=== PATIENT | female | born 1980 | race Caucasian/White ===

== ENCOUNTER 2017-12-16 17:57 | Emergency (ER) | payer BC ==
[2017-12-16 18:02] VITALS: RESP 18
[2017-12-16] MEDS ORDERED: KETOROLAC 30 MG/ML 1 ML VIAL IM STA (18:23)
--- NOTE | 2017-12-16 18:27 | ED ---
General Adult HPI - General Chief complaint: Abdominal Pain Stated complaint: Abd Pain Time Seen by Provider: 12/16/17 18:07 Source: patient, RN notes reviewed Mode of arrival: ambulatory Limitations: no limitations - History of Present Illness Initial comments: This is a 37-year-old female who presents to the emergency department with chief complaint of abdominal flank pain. Patient states that she was seen at [facility] on Saturday and diagnosed with kidney stones. She was told that she was actively passing one stone and that she had 2 other stones in the left kidney. Patient states that she has had intermittent pain since that time. She has been taking ibuprofen and Flomax. She states that today while at work the pain increased and she felt really warm and sweaty. She states that currently she is experiencing left lower abdominal cramping and left flank pain. She states that when she was initially diagnosed a kidney stone she was having hematuria but this has subsided. She denies any fevers or chills. Denies shortness of breath or chest pain. Patient presents asking for a work note to be excused for the rest of the week. - Related Data Home Medications Medication Instructions Recorded Confirmed Ibuprofen [Motrin] 800 mg PO Q8HR PRN 12/16/17 12/16/17 Tamsulosin [Flomax] 0.4 mg PO DAILY 12/16/17 12/16/17 Allergies Allergy/AdvReac Type Severity Reaction Status Date / Time Penicillins Allergy Swelling Verified 12/16/17 18:26 Review of Systems ROS Statement: Those systems with pertinent positive or pertinent negative responses have been documented in the HPI. ROS Other: All systems not noted in ROS Statement are negative. Past Medical History Past Medical History: No Reported History History of Any Multi-Drug Resistant Organisms: None Reported Past Surgical History: Tonsillectomy, Tubal Ligation Past Psychological History: No Psychological Hx Reported Smoking Status: Current every day smoker Past Alcohol Use History: None Reported, Rare Past Drug Use History: None Reported General Exam - General Exam Comments Initial Comments: General: Awake and alert, well-developed; in no apparent distress. Appears comfortable. HEENT: Head atraumatic, normocephalic. Pupils are equal, round and reactive to light. Extraocular movements intact. Oropharynx moist without erythema or exudate. Neck: Supple. Normal ROM. Cardiovascular: Regular rate and rhythm. No murmurs, rubs or gallops. Chest symmetrical. Respiratory: Lungs clear to auscultation bilaterally. No wheezes, rales or rhonchi. Normal respiratory effort with no use of accessory muscles. Abdomen: Soft, non-tender, non-distended. No rigidity, rebound or guarding. Normal bowel sounds in all 4 quadrants. No CVA tenderness bilaterally. Musculoskeletal: Normal ROM, no tenderness bilateral upper and lower extremities. Ambulating normally. Skin: [place], warm and dry without rashes or lesions. Neurological: Alert and oriented x3. CN II-XII grossly intact. Speech is fluent and answers are appropriate. No focal neuro deficits. Psychiatric: Normal mood and affect. No overt signs of depression or anxiety noted. Limitations: no limitations (Initial vital signs: Temperature 98.0, pulse 126, respirations 18, blood pressure 162/90, 100% on room air.) Course Vital Signs 12/16/17 17:59 Temperature 98.0 F Pulse Rate 126 H Respiratory 18 Rate Blood Pressure 162/90 O2 Sat by Pulse 100 Oximetry Medical Decision Making - Medical Decision Making This is a 37-year-old female who presents to the emergency department with chief complaint of left flank and abdominal pain. Patient was diagnosed on Saturday. She had an episode at work today with increasing pain and feeling very warm. Vital signs are stable and patient is afebrile. Patient wishes to have a work note to be excused for the rest of the week. Patient is comfortable and not complaining of any significant pain. No nausea or vomiting. UA revealed small blood and red blood cells. No signs of infection. KUB revealed a patient over the kidneys. Patient likely passed a kidney stone earlier today. She is in no distress and vital signs are stable. She'll be discharged home at this time. All questions answered. - Lab Data Lab Results 12/16/17 Range/Units 18:34 Urine Color Yellow Urine Appearance Clear (Clear) Urine pH 6.0 (5.0-8.0) Ur Specific [place] 1.028 (1.001-1.035) Urine Protein 1+ H (Negative) Urine Glucose (UA) Negative (Negative) Urine Ketones Negative (Negative) Urine Blood Small H (Negative) Urine Nitrite Negative (Negative) Urine Bilirubin Negative (Negative) Urine Urobilinogen <2.0 (<2.0) mg/dL Ur Leukocyte Esterase Trace H (Negative) Urine RBC 10 H (0-5) /hpf Urine WBC 2 (0-5) /hpf Ur Squamous Epith Cells 4 (0-4) /hpf Hyaline Casts 13 H (0-2) /lpf Urine Mucus Occasional H (None) /hpf - Radiology Data Radiology results: report reviewed, image reviewed X-ray KUB findings: There is no sign of intestinal obstruction or pneumoperitoneum. Fecal pattern is normal. Lung bases are clear. There are no pathologic calcifications over the kidneys. Impression: Nonacute abdomen. Disposition Clinical Impression: Calculus of kidney Disposition: HOME SELF-CARE Condition: Good Instructions: Kidney Stones (ED), How to Strain Your Urine (ED), Ureteral Stones (ED) Additional Instructions: Please take medications as prescribed. Please follow up with primary care provider within 1-2 days. Return to emergency department if symptoms should worsen or any concerns arise. Is patient prescribed a controlled substance at d/c from ED?: No Referrals: None,Stated [Primary Care Provider] - 1-2 days Time of Disposition: 19:33
[2017-12-16 18:51] LABS: Appearance,Urine Clear (Clear); Bilirubin,Urine Negative (Negative); Blood,Urine Small (Negative); Color,Urine Yellow; Glucose,Urine (UA) Negative (Negative); Hyaline Casts,Urine 13 /lpf (0-2); Ketones,Urine Negative (Negative); Leukocyte Esterase,Urine Trace (Negative); Mucus,Urine Occasional /hpf; Nitrite,Urine Negative (Negative); Protein,Urine 1+ (Negative); RBC,Urine 10 /hpf (0-5); Specific Gravity,Urine 1.028 (1.001-1.035); Squamous Epithelial Cell,Urine 4 /hpf (0-4); Urobilinogen,Urine <2.0 mg/dL (<2.0); WBC,Urine 2 /hpf (0-5)
--- NOTE | 2017-12-16 19:09 | XR ---
EXAMINATION TYPE: XR KUB DATE OF EXAM: 12/16/2017 COMPARISON: NONE HISTORY: Abdominal pain TECHNIQUE: 2 views FINDINGS: There is no sign of intestinal obstruction or pneumoperitoneum. Fecal pattern is normal. Milla ng bases are clear. There are no pathologic calcifications over the kidneys. IMPRESSION: Nonacute abdomen.
[2017-12-16 19:42] VITALS: BP 129/79; PULSE 77; TEMP 97
== END 2017-12-16 19:42 | disposition home or self-care (01) ==
LOC: EC 17:57
DX: N20.0 Calculus of kidney (principal); F17.200 Nicotine dependence, unspecified, uncomplicated; Z79.899 Other long term (current) drug therapy; Z88.0 Allergy status to penicillin
CPT/HCPCS: 81001; 87086; 74018; 99284; 96372; J1885

== ENCOUNTER → 2018-01-01 | Outpatient (CLI) | payer BC ==
--- NOTE | 2018-01-01 13:57 | US ---
EXAMINATION TYPE: US kidneys/renal and bladder DATE OF EXAM: 01/01/2018 COMPARISON: Abdominal x-ray December 16, 2016 CLINICAL HISTORY: N23 Renal Colic. Back pain EXAM MEASUREMENTS: Right Kidney: 11.2 x 6.0 x 5.5 cm Left Kidney: 11.0 x 4.8 x 5.8 c Right Kidney: moderate hydronephrosis seen Left Kidney: multiple shadowing renal stones seen, largest stones were on inferior pole and = 0.9cm Bladder: wnl Bilateral Jets seen: yes The urinary bladder is anechoic. Bilateral ureteral jets are seen. There is fullness centrally in right kidney consistent with moderate hydronephrosis. No shadowing nep hrolithiasis. Technologist altman nonshadowing hyperechoic foci left kidney to reflect small renal lucius culi. No hydronephrosis is seen. IMPRESSION: There is suspected moderate right-sided hydronephrosis though the distal right ureter jet is seen katie ing complete obstruction unlikely. There are possible small renal calculi bilaterally better visualiz ed in the left kidney on ultrasound, no large calculi are clearly seen on recent plain film. Consider CT evaluation to further assess.
== END | disposition home or self-care (01) ==
LOC: RADUSWWP 12:48
PROVIDERS: ATTEND Family Medicine
DX: N23 Unspecified renal colic (principal)
CPT/HCPCS: 76770

== ENCOUNTER 2019-05-13 02:47 | Emergency (ER) | payer BC ==
[2019-05-13 02:59] VITALS: BP 166/93; PULSE 133; RESP 22; TEMP 97.6
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
== END 2019-05-13 04:52 | disposition home or self-care (01) ==
LOC: EC 02:47
DX: S00.83XA Contusion of other part of head, initial encounter (principal); R00.0 Tachycardia, unspecified; F17.200 Nicotine dependence, unspecified, uncomplicated; Z88.0 Allergy status to penicillin; Y04.0XXA Assault by unarmed brawl or fight, initial encounter; Y92.009 Unspecified place in unspecified non-institutional (private) residence as the place of occurrence of the external cause
CPT/HCPCS: 70486; 99284

== ENCOUNTER 2019-08-12 18:52 | Emergency (ER) | payer BC, OTHER ==
[2019-08-12 19:07] VITALS: BP 158/98; PULSE 103; RESP 22
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
== END 2019-08-12 20:14 | disposition left against medical advice (07) ==
LOC: EC 18:52
DX: F41.9 Anxiety disorder, unspecified (principal); R07.9 Chest pain, unspecified; R06.02 Shortness of breath; F17.200 Nicotine dependence, unspecified, uncomplicated; Z53.20 Procedure and treatment not carried out because of patient's decision for unspecified reasons; Z88.0 Allergy status to penicillin
CPT/HCPCS: 99283

== ENCOUNTER 2024-04-10 14:25 | Inpatient (IN) | payer MEDICAID, OTHER ==
--- NOTE | 2024-04-10 14:51 | ED ---
General Adult HPI - General Stated complaint: Mental Health Time Seen by Provider: 04/10/24 14:35 Source: patient, RN notes reviewed, old records reviewed - History of Present Illness Initial comments: 43-year-old female who is brought in by EMS. Patient states she has been dealing with people messing with her. Patient states anytime she was out in public people are messing with hearing and getting into her devices and sending her messages and she thinks at home her uncle is messing with her clothing and taking zippers out of her clothing as well he denies it. Patient states that she has just had it after 5 years she is just so stressed that she went to urgent care today to get some help so that she can get some medicine to calm her down so she does not get mad and do something to somebody else. Patient states that she is not suicidal but she does at times which she was not here she is sick of dealing with these people. Patient denies any physical complaints today - Related Data Home Medications Medication Instructions Recorded Confirmed No Known Home Medications 05/13/19 04/10/24 Allergies Allergy/AdvReac Type Severity Reaction Status Date / Time Penicillins Allergy Swelling Verified 04/10/24 15:48 face Review of Systems ROS Statement: Those systems with pertinent positive or pertinent negative responses have been documented in the HPI. ROS Other: All systems not noted in ROS Statement are negative. Past Medical History Past Medical History: No Reported History History of Any Multi-Drug Resistant Organisms: None Reported Past Surgical History: Tonsillectomy, Tubal Ligation Additional Past Surgical History / Comment(s): ganglion cyst removal, LEEP, right knee surgery, Past Psychological History: No Psychological Hx Reported Past Alcohol Use History: Rare Past Drug Use History: None Reported - Past Family History Father Family Medical History: Unable to Obtain Mother Family Medical History: Unable to Obtain General Exam - General Exam Comments Initial Comments: GENERAL: Patient is well-developed and well-nourished. Patient is nontoxic and well- hydrated and is in no acute distress. ENT: Neck is soft and supple. No significant lymphadenopathy is noted. Oropharynx is clear. Moist mucous membranes. Neck has full range of motion without eliciting any pain. EYES: The sclera were anicteric and conjunctiva were pink and moist. Extraocular movements were intact and pupils were equal round and reactive to light. Eyelids were unremarkable. PULMONARY: Unlabored respirations. Good breath sounds bilaterally. No audible rales rhonchi or wheezing was noted. CARDIOVASCULAR: There is a regular rate and rhythm without any murmurs gallops or rubs. ABDOMEN: Soft and nontender with normal bowel sounds. SKIN: Skin is clear with no lesions or rashes and otherwise unremarkable. NEUROLOGIC: Patient is alert and oriented x3. Cranial nerves II through XII are grossly intact. Motor and sensory are also intact. Normal speech, volume and content. Symmetrical smile. MUSCULOSKELETAL: Normal extremities with adequate strength and full range of motion. LYMPHATICS: No significant lymphadenopathy is noted PSYCHIATRIC: Thinks that people are messing with her constantly in the are getting into her phone and into her house Course Vital Signs 04/10/24 14:37 Temperature 98.3 F Pulse Rate 90 Respiratory 20 Rate Blood Pressure 166/114 O2 Sat by Pulse 99 Oximetry Medical Decision Making - Medical Decision Making Was pt. sent in by a medical professional or institution (, PA, VIDEOTAPE EDITOR, urgent care, hospital, or long-term...) When possible be specific @ -No Did you speak to anyone other than the patient for history (EMS, parent, family, police, friend...)? What history was obtained from this source @ -No Did you review nursing and triage notes (agree or disagree)? Why? @ -I reviewed and agree with nursing and triage notes Were old charts reviewed (outside hosp., previous admission, EMS record, old EKG, old radiological studies, urgent care reports/EKG's, long-term records)? Report findings @ -No old charts were reviewed Differential Diagnosis? @ -Differential Mental Health Depression, anxiety, bipolar, psychosis, schizophrenia, borderline personality, situational depression, adjustment disorder, behavioral disorder, brain tumor, malingering, substance abuse, encephalopathy, medication reaction, dementia, hypothyroidism, degenerative neurologic disorder, lupus.... This is not meant to be all-inclusive list EKG interpreted by me (3pts min.). @ -None X-rays interpreted by me (1pt min.). @ -None done CT interpreted by me (1pt min.). @ -None done U/S interpreted by me (1pt. min.). @ -None done What testing was considered but not performed or refused? (CT, X-rays, U/S, labs)? Why? @ -None What meds were considered but not given or refused? Why? @ -None Did you discuss the management of the patient with other professionals (adry up i.e. , PA, VIDEOTAPE EDITOR, lab, RT, psych nurse, social services technician, assistant corporate secretary, teacher, special technical operations officer, caseworker protective services)? Give summary @ -EPS evaluated the patient and determined the patient need to be admitted in consultation with the psychiatrist. Was smoking cessation discussed for >3mins.? @ -No Was critical care preformed (if so, how long)? @ -No Were there social determinants of health that impacted care today? How? (Homelessness, low income, unemployed, alcoholism, drug addiction, transportation, low edu. Level, literacy, decrease access to med. care, [facility], rehab)? @ -No Was there de-escalation of care discussed even if they declined (Discuss DNR or withdrawal of care, Hospice)? DNR status @ -No What co-morbidities impacted this encounter? (DM, HTN, Smoking, COPD, CAD, Cancer, CVA, ARF, Chemo, Hep., AIDS, mental health diagnosis, sleep apnea, morbid obesity)? @ -None Was patient admitted / discharged? Hospital course, mention meds given and route, prescriptions, significant lab abnormalities, going to OR and other pertinent info. @ -Patient had no physical complaints while she was here and she was amenable to admission Undiagnosed new problem with uncertain prognosis? @ -No Drug Therapy requiring intensive monitoring for toxicity (Heparin, Nitro, Insulin, Cardizem)? @ -No Were any procedures done? @ -No Diagnosis/symptom? @ -Acute psychosis Acute, or Chronic, or Acute on Chronic? @ -Acute Uncomplicated (without systemic symptoms) or Complicated (systemic symptoms)? @ -Complicated Side effects of treatment? @ -No Exacerbation, Progression, or Severe Exacerbation? @ -No Poses a threat to life or bodily function? How? (Chest pain, USA, SC, pneumonia, PE, COPD, DKA, ARF, appy, cholecystitis, CVA, Diverticulitis, Homicidal, Suicidal, threat to staff... and all critical care pts) @ -No - Lab Data Result diagrams: 04/11/24 07:10 04/11/24 07:10 Lab Results 04/10/24 04/10/24 04/10/24 Range/Units 15:22 15:22 21:37 Urine Color Yellow Urine Appearance Cloudy H (Clear) Urine pH 6.0 (5.0-8.0) Ur Specific [place] 1.026 (1.001-1.035) Urine Protein 1+ H (Negative) Urine Glucose (UA) Negative (Negative) Urine Ketones Negative (Negative) Urine Blood Trace H (Negative) Urine Nitrite Negative (Negative) Urine Bilirubin Negative (Negative) Urine Urobilinogen <2.0 (<2.0) mg/dL Ur Leukocyte Esterase Small H (Negative) Urine RBC 14 H (0-5) /hpf Urine WBC 8 H (0-5) /hpf Ur Squamous Epith Cells 8 H (0-4) /hpf Urine Bacteria Rare H (None) /hpf Hyaline Casts 8 H (0-2) /lpf Urine Mucus Moderate H (None) /hpf Urine Opiates Screen Not Detected (NotDetected) Ur Oxycodone Screen Not Detected (NotDetected) Urine Methadone Screen Not Detected (NotDetected) Ur Barbiturates Screen Not Detected (NotDetected) U Tricyclic Antidepress Not Detected (NotDetected) Ur Phencyclidine Scrn Not Detected (NotDetected) Ur Amphetamines Screen Not Detected (NotDetected) U Methamphetamines Scrn Not Detected (NotDetected) U Benzodiazepines Scrn Not Detected (NotDetected) Urine Cocaine Screen Not Detected (NotDetected) U Marijuana (THC) Screen Not Detected (NotDetected) SARS-CoV-2 (PCR) Not Detected (Not Detectd) Disposition Clinical Impression: Psychosis Disposition: ADMITTED IP TO THIS HOSP
[2024-04-10] MEDS: NICOTINE 21MG/24HR PATCH TRANSDERM STA (14:53)
[2024-04-10 15:58] LABS: Amphetamine Screen,Urine Not Detected (NotDetected); Barbiturate Screen,Urine Not Detected (NotDetected); Benzodiazepines Screen,Urine Not Detected (NotDetected); Cocaine Screen,Urine Not Detected (NotDetected); Methadone Screen, Urine Not Detected (NotDetected); Opiate Screen,Urine Not Detected (NotDetected); Oxycodone Screen, Urine Not Detected (NotDetected); Phencyclidine Screen,Urine Not Detected (NotDetected); Tricyclic Antidepressant,Urine Not Detected (NotDetected); Urn Cannabinoid Scrn Not Detected (NotDetected)
[2024-04-10] MEDS ORDERED: LORazepam 2 MG/ML INJ IM PRN (22:47)
[2024-04-10] MEDS ORDERED: IBUPROFEN 600 MG TAB PO PRN (22:47)
[2024-04-10] MEDS ORDERED: haloperidoL 5 MG TAB PO PRN (22:47)
[2024-04-10] MEDS ORDERED: MAGNESIUM HYDROXIDE 2,400 MG/30 ML CUP PO PRN (22:47)
[2024-04-10] MEDS ORDERED: HALOPERIDOL LACTATE 5 MG/ML 1 ML VIAL IM PRN (22:47)
--- NOTE | 2024-04-11 04:45 | P.MDCNMH ---
History of Present Illness H&P Date: 04/11/24 Chief Complaint: Medical evaluation 43-year-old female no significant past medical history Patient coming in for evaluation due to delusional ideation. Patient denies any fevers chills coughing nausea vomiting chest pain trouble breathing headache changes in vision or hearing falls, denies any nausea vomiting abdominal pain changes in bowel or urinary habits review of systems Pertinent positives as noted in HPI. All other systems were reviewed and are negative on exam Constitutional: No acute distress, conversant, pleasant Eyes: Anicteric sclerae, moist conjunctiva, Pupils equal round reactive to light ENMT: NC/AT Lungs: Clear to auscultation Clear to percussion Normal respiratory effort, no accessory muscle use Cardiovascular: Heart regular in rate and rhythm, No murmurs, gallops, or rubs No peripheral edema Abdominal: Soft Nontender, no guarding, rebound or rigidity Abdomen moving with respiration Normoactive bowel sounds Extremities: No digital cyanosis No clubbing Pedal pulses intact and symmetrical Radial pulses intact and symmetrical No calf tenderness Psychiatric: Alert and oriented to person, place and time Neuro Muscles Strength 5/5 in all 4 extremities Sensation to light touch grossly present throughout Cranial nerves II-XII grossly intact Past Medical History Past Medical History: No Reported History History of Any Multi-Drug Resistant Organisms: None Reported Past Surgical History: Tonsillectomy, Tubal Ligation Additional Past Surgical History / Comment(s): ganglion cyst removal, LEEP, right knee surgery, Past Anesthesia/Blood Transfusion Reactions: No Reported Reaction Past Psychological History: No Psychological Hx Reported Smoking Status: Current every day smoker Past Alcohol Use History: Rare Past Drug Use History: Methamphetamine - Past Family History Father Family Medical History: Unable to Obtain Mother Family Medical History: Unable to Obtain Medications and Allergies Home Medications Medication Instructions Recorded Confirmed Type No Known Home Medications 05/13/19 04/10/24 History Allergies Allergy/AdvReac Type Severity Reaction Status Date / Time Penicillins Allergy Swelling Verified 04/10/24 15:48 face Physical Exam Vitals: Vital Signs Temp Pulse Pulse Resp BP BP Pulse Ox 04/10/24 23:41 98.4 F 75 18 158/95 98 04/10/24 14:37 98.3 F 90 20 166/114 99 Intake and Output 04/10/24 04/10/24 04/11/24 14:59 22:59 06:59 Other: Weight 73.028 kg 70.789 kg Cranial Nerve Examination - Cranial Nerves Cranial Nerve II- Optic: Intact Cranial Nerve III- Oculomotor: Intact Cranial Nerve IV- Trochlear: Intact Cranial Nerve V- Trigeminal: Intact Cranial Nerve - Abducens: Intact Cranial Nerve VII- Facial: Intact Cranial Nerve VIII- Auditory: Intact Cranial Nerve IX- Glossopharyngeal: Intact Cranial Nerve X- Vagus: Intact Cranial Nerve XI- Accessory: Intact Cranial Nerve XII- Hypoglossal: Intact Assessment and Plan Assessment: Delusional ideation Management per psych Urine drug screen negative Tobacco smoking and dependence Nicotine replacement therapy offered No other labs available at this time Overall stable from medical standpoint Thank for this consultation
[2024-04-11 06:39] LABS: Appearance,Urine Cloudy (Clear); Bacteria,Urine Rare /hpf; Bilirubin,Urine Negative (Negative); Blood,Urine Trace (Negative); Color,Urine Yellow; Glucose,Urine (UA) Negative (Negative); Hyaline Casts,Urine 8 /lpf (0-2); Ketones,Urine Negative (Negative); Leukocyte Esterase,Urine Small (Negative); Mucus,Urine Moderate /hpf; Nitrite,Urine Negative (Negative); Protein,Urine 1+ (Negative); RBC,Urine 14 /hpf (0-5); Specific Gravity,Urine 1.026 (1.001-1.035); Squamous Epithelial Cell,Urine 8 /hpf (0-4); Urobilinogen,Urine <2.0 mg/dL (<2.0); WBC,Urine 8 /hpf (0-5)
[2024-04-11 07:48] LABS: Basophils # (A) 0.1 k/uL (0-0.2); Basophils % (A) 1 %; Eosinophils # (A) 0.2 k/uL (0-0.7); Eosinophils % (A) 2 %; HCT 48.8 % (34.0-46.0); HGB 16.3 gm/dL (11.4-16.0); Lymphocytes # (A) 1.9 k/uL (1.0-4.8); Lymphocytes % (A) 23 %; MCH 31.6 pg (25.0-35.0); MCHC 33.3 g/dL (31.0-37.0); MCV 94.9 fL (80.0-100.0); Mean Platelet Volume 8.1; Monocytes # (A) 0.6 k/uL (0-1.0); Monocytes % (A) 7 %; Neutrophils # (A) 5.4 k/uL (1.3-7.7); Neutrophils % (A) 65 %; Platelet Count 368 k/uL (150-450); RBC 5.15 m/uL (3.80-5.40); WBC 8.4 k/uL (3.8-10.6)
[2024-04-11 07:58] LABS: Potassium 4.2 mmol/L (3.5-5.1)
[2024-04-11 07:59] LABS: ALT 14 U/L (4-34); AST 29 U/L (14-36); African American GFR (CKD) >90 (>60 ml/min/1.73 sqM); Albumin 4.4 g/dL (3.5-5.0); Alkaline Phosphatase 90 U/L (38-126); Anion Gap 10 mmol/L; Bilirubin, Delta 0.3 mg/dL (0.0-0.2); Bilirubin,Unconjugated 0.6 mg/dL (0.0-1.1); Blood Urea Nitrogen 9 mg/dL (7-17); Calcium 9.8 mg/dL (8.4-10.2); Carbon Dioxide 22 mmol/L (22-30); Chloride 108 mmol/L (98-107); Glucose 93 mg/dL (74-99); Non-African American GFR(CKD) >90 (>60 ml/min/1.73 sqM); Sodium 140 mmol/L (137-145); Total Bilirubin 0.9 mg/dL (0.2-1.3); Total Protein 7.3 g/dL (6.3-8.2)
[2024-04-11] MEDS: NICOTINE 14MG/24HR PATCH TRANSDERM SCH (09:29)
--- NOTE | 2024-04-11 11:46 | P.HP ---
Psychiatric H&P - . H&P Date: 04/11/24 History & Physical: Allergies Allergy/AdvReac Type Severity Reaction Status Date / Time Penicillins Allergy Swelling Verified 04/10/24 15:48 face Vital Signs Temp 97.1 F L 04/11/24 05:24 Pulse 96 04/11/24 05:24 Resp 18 04/11/24 05:24 BP 134/95 04/11/24 05:24 Pulse Ox 96 04/11/24 05:24 FiO2 Intake & Output 04/10/24 04/11/24 04/11/24 18:59 06:59 18:59 Weight 73.028 kg 70.789 kg Laboratory Last Values WBC 8.4 k/uL (3.8-10.6) 04/11/24 07:10 RBC 5.15 m/uL (3.80-5.40) 04/11/24 07:10 Hgb 16.3 gm/dL (11.4-16.0) H 04/11/24 07:10 Hct 48.8 % (34.0-46.0) H 04/11/24 07:10 MCV 94.9 fL (80.0-100.0) 04/11/24 07:10 MCH 31.6 pg (25.0-35.0) 04/11/24 07:10 MCHC 33.3 g/dL (31.0-37.0) 04/11/24 07:10 RDW 13.0 % (11.5-15.5) 04/11/24 07:10 Plt Count 368 k/uL (150-450) 04/11/24 07:10 MPV 8.1 04/11/24 07:10 Neutrophils % 65 % 04/11/24 07:10 Lymphocytes % 23 % 04/11/24 07:10 Monocytes % 7 % 04/11/24 07:10 Eosinophils % 2 % 04/11/24 07:10 Basophils % 1 % 04/11/24 07:10 Neutrophils # 5.4 k/uL (1.3-7.7) 04/11/24 07:10 Lymphocytes # 1.9 k/uL (1.0-4.8) 04/11/24 07:10 Monocytes # 0.6 k/uL (0-1.0) 04/11/24 07:10 Eosinophils # 0.2 k/uL (0-0.7) 04/11/24 07:10 Basophils # 0.1 k/uL (0-0.2) 04/11/24 07:10 Sodium 140 mmol/L (137-145) 04/11/24 07:10 Potassium 4.2 mmol/L (3.5-5.1) 04/11/24 07:10 Chloride 108 mmol/L (98-107) H 04/11/24 07:10 Carbon Dioxide 22 mmol/L (22-30) 04/11/24 07:10 Anion Gap 10 mmol/L 04/11/24 07:10 BUN 9 mg/dL (7-17) 04/11/24 07:10 Creatinine 0.60 mg/dL (0.52-1.04) 04/11/24 07:10 Est GFR (CKD-EPI)AfAm >90 (>60 ml/min/1.73 sqM) 04/11/24 07:10 Est GFR (CKD-EPI)NonAf >90 (>60 ml/min/1.73 sqM) 04/11/24 07:10 Glucose 93 mg/dL (74-99) 04/11/24 07:10 Calcium 9.8 mg/dL (8.4-10.2) 04/11/24 07:10 Total Bilirubin 0.9 mg/dL (0.2-1.3) 04/11/24 07:10 Conjugated Bilirubin 0.0 mg/dL (0.0-0.3) 04/11/24 07:10 Unconjugated Bilirubin 0.6 mg/dL (0.0-1.1) 04/11/24 07:10 Delta Bilirubin 0.3 mg/dL (0.0-0.2) H 04/11/24 07:10 AST 29 U/L (14-36) 04/11/24 07:10 ALT 14 U/L (4-34) 04/11/24 07:10 Alkaline Phosphatase 90 U/L (38-126) 04/11/24 07:10 Total Protein 7.3 g/dL (6.3-8.2) 04/11/24 07:10 Albumin 4.4 g/dL (3.5-5.0) 04/11/24 07:10 TSH 2.090 mIU/L (0.465-4.680) 04/11/24 07:10 Urine Color Yellow 04/10/24 15:22 Urine Appearance Cloudy (Clear) H 04/10/24 15:22 Urine pH 6.0 (5.0-8.0) 04/10/24 15:22 Ur Specific [place] 1.026 (1.001-1.035) 04/10/24 15:22 Urine Protein 1+ (Negative) H 04/10/24 15:22 Urine Glucose (UA) Negative (Negative) 04/10/24 15:22 Urine Ketones Negative (Negative) 04/10/24 15:22 Urine Blood Trace (Negative) H 04/10/24 15: Urine Nitrite Negative (Negative) 04/10/24 15: Urine Bilirubin Negative (Negative) 04/10/24 15:22 Urine Urobilinogen <2.0 mg/dL (<2.0) 04/10/24 15:22 Ur Leukocyte Esterase Small (Negative) H 04/10/24 15:22 Urine RBC 14 /hpf (0-5) H 04/10/24 15:22 Urine WBC 8 /hpf (0-5) H 04/10/24 15:22 Ur Squamous Epith Cells 8 /hpf (0-4) H 04/10/24 15:22 Urine Bacteria Rare /hpf (None) H 04/10/24 15:22 Hyaline Casts 8 /lpf (0-2) H 04/10/24 15:22 Urine Mucus Moderate /hpf (None) H 04/10/24 15:22 Urine Opiates Screen Not Detected (NotDetected) 04/10/24 15:22 Ur Oxycodone Screen Not Detected (NotDetected) 04/10/24 15:22 Urine Methadone Screen Not Detected (NotDetected) 04/10/24 15:22 Ur Barbiturates Screen Not Detected (NotDetected) 04/10/24 15:22 U Tricyclic Antidepress Not Detected (NotDetected) 04/10/24 15:22 Ur Phencyclidine Scrn Not Detected (NotDetected) 04/10/24 15:22 Ur Amphetamines Screen Not Detected (NotDetected) 04/10/24 15:22 U Methamphetamines Scrn Not Detected (NotDetected) 04/10/24 15:22 U Benzodiazepines Scrn Not Detected (NotDetected) 04/10/24 15:22 Urine Cocaine Screen Not Detected (NotDetected) 04/10/24 15:22 U Marijuana (THC) Screen Not Detected (NotDetected) 04/10/24 15:22 SARS-CoV-2 (PCR) Not Detected (Not Detectd) 04/10/24 21:37 04/11/24 11:42 IDENTIFYING DATA: Patient is a 43-year-old female, currently lives with her uncle in a house, she is she has 3 kids, she is unemployed. HPI: Patient presented to the hospital on 04/10 yesterday, complaining of having her device is hacked, endorsing paranoia delusional. Patient was agreeable to sign voluntary admitted to the psychiatric unit. Patient UDS was negative. Patient was agreeable to speak to film writer today in the office. She appeared to be somewhat upset, states that she believed that her devices are being hacked. Place claims that people are "playing games with me". She was fairly vague at first however specified more and believes that the basketball teams including the [employer] on the [employer] have been playing tricks on her out in the community. She even referenced a few famous basketball players. She claims that she does not know why she has been targeted, claims that she goes to the financial recruiter and they are not helping her taking her seriously. Even claims that she went to a software specialist who was not able to help her. Claims that she went to her doctor's office and stated that "I do not want to be here" and they ended up transferring her to the ER for evaluation. Patient was fairly focused on different "mind games" that are being played on her. She thinks that other people think that she is "crazy". She was fairly focused on the paranoia during the interview, illogical at times. Claims that her sleep has been on and off, states that she has lots of racing thoughts at nighttime and during the day. Claims that her appetite is fair. Patient denies any suicidal or homicidal ideations intent or plan. At this time patient denies any auditory or visual hallucinations. Patient admits to using cigarettes only, no other recreational drugs PAST PSYCHIATRIC HISTORY: Patient claims that she has no previous psychiatric diagnoses or issues. Patient denies being on any psychiatric medications. Patient denies any previous psychiatric hospitalizations. Patient denies any psychiatric outpatient follow-up. Patient denies any history of suicide attempts in the past. PMH: as per ER note ALLERGIES: as per EMR CHEMICAL DEPENDENCY HISTORY: as per HPI FAMILY PSYCHIATRIC/SUBSTANCE USE HISTORY: Denies SOCIAL HISTORY: Patient was born and raised in [place]. Claims that she completed high school and did a medical assisting certificate afterwards. Claims that she is currently unemployed however, current lives with her uncle in a house, she is she has 3 kids. She denies any legal history. MENTAL STATUS EXAM: General Appearance: Patient appears to be somewhat upset, stated age is alert, directable, and attempts to cooperate. Patient appears to have poor hygiene and grooming. Behavior: Patient is seated without any agitated behavior. Fairly paranoid, upset. Speech: Patient's speech is fluent and nonpressured. Mood/Affect: Patient reports their mood is depressed, affect is congruent and constricted. Suicidality/Homicidality: Patient denies having any homicidal ideation intent or plan. Denies any suicidal ideations intent or plan Perceptions: Patient denies any visual hallucinations and denies any auditory hallucinations Though content/process: Goal-directed. Focused on paranoia and delusions. Logical at times Memory and concentration: AOX3, grossly intact for the purposes of this session. Can spell "WORLD" backwards Judgment and insight: Poor STRENGTHS/WEAKNESSES: strength is that patient is resilient. Weakness is that patient has poor judgment and is impulsive INTELLECT: Average IMPRESSIONS: Psychosis unspecified Nicotine dependence PLAN: -Patient is admitted under voluntary status to MHU for stabilization of psychiatric symptoms and safety. Patient has signed adult voluntary form and medication consent and is placed in patient's chart. -Medications : Invega p.o. 3 mg daily for mood stabilization/psychosis. Trazodone 50 mg nightly for sleep/mood. -Ativan and Haldol PRN for agitation/aggression -Patient was informed of the risks, benefits and side effects of the medication and patient verbally consented to taking the medications. Patient signed med consent form and was placed in chart. -Internal Medicine consult to perform medical evaluation and physical. -NRT -nicotine patch -SW on board for discharge planning. Encourage patient to participate in groups to work on coping skills.
[2024-04-11] MEDS: PALIPERIDONE 3 MG TAB.ER.24 PO SCH (12:16)
[2024-04-11 12:52] LABS: Chol/HDL Ratio 4.07 Ratio
[2024-04-11] MEDS: ACETAMINOPHEN TAB 325 MG TAB PO PRN (18:59)
[2024-04-11] MEDS: LORazepam 1 MG TAB PO PRN (21:16)
[2024-04-11] MEDS: traZODone HCL 50 MG TAB PO SCH (21:16)
[2024-04-12 07:14] VITALS: RESP 16
--- NOTE | 2024-04-12 13:16 | P.PN ---
Progress Note - Text Progress Note Date: 04/12/24 Interval history: Patient was seen wandering the hallways and was directable and agreeable to s peak with movie writer. She continues to be fairly irritable with movie writer, continues to be preoccupied with her paranoia and delusions of other people "messing with me". She claims that she has prove on her cell phone. She was somewhat upset with still being in the hospital, claims that "your medications are not can work for me". She threatened to sign AGAINST MEDICAL ADVICE today, we spoke briefly about the court process as a potential option. Claims that she slept fairly last night denied any problems with her appetite. At this time patient denies any suicidal or homicidal ideations intent or plan. Denies any Auditory or visual hallucinations. Patient denies any side effects from the medications and has been compliant with meds. Mental status exam: General Appearance: Patient appears to be stated age is alert, directable, and uncooperative Behavior: No agitated behavior. Patient is calm and directable, minimizing Speech: Patient's speech is fluent and nonpressured. Mood/Affect: Mood is improving mildly, affect is congruent and constricted. Suicidality/Homicidality: Patient denies having any suicidal or homicidal ideation intent or plan. Perceptions: Patient denies any auditory or visual hallucinations. Though content/process: Goal-directed. Focused on discharge. Endorsing paranoia, delusional. Memory and concentration: AOX3, grossly intact for the purposes of this session Judgment and insight: Poor Assessment/Plan: Continue with current diagnosis. Patient continues to meet criteria for inpatient psychiatric admission for symptom stabilization and safety. Patient will be maintained on current psychotropic medication regimen, with the exception of increasing Invega p.o. to 3 mg twice daily. Monitor for medication compliance and for any psychotropic medication side effects. Will continue to monitor ongoing response to treatment. Encouraged participation in milieu.
[2024-04-12] MEDS: PALIPERIDONE 3 MG TAB.ER.24 PO SCH (20:58)
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
[2024-04-13] MEDS: NICOTINE GUM (POLACRILEX) 2 MG GUM BUCCAL PRN (15:50)
[2024-04-14 07:05] VITALS: TEMP 97.1
--- NOTE | 2024-04-14 11:21 | P.PN ---
Progress Note - Text Progress Note Date: 04/14/24 Interval History: Patient was seen in the lounge but was directable and agreeable to speak with senior medical writer in her room. She states feeling well today and expressed no concerns. She states she has been going to groups. Patient appeared to be less fixated on her devices being hacked but at the end of the conversation did bring up wanting to get a government phone. She reports good sleep and appetite. She reported a headache this morning that resolved with as needed medications. Discussed with patient the potential to transition to a long-acting injectable however she declined stating she prefers to take medications oral. She states she will return home to her uncle once discharged. At this time patient denies any suicidal or homical ideations, intent or plan. Patient denies any auditory, visual hallucinations and denies any delusions. Patient denies any side effects from the medications and has been compliant with meds. Mental Status Exam: General Appearance: Patient appears to be stated age is alert, directable, and cooperative. Behavior: Patient is calmly seated without any agitated behavior. Speech: Patient's speech is fluent and nonpressured. Mood/Affect: Mood is improving mildly, affect is congruent and constricted. Suicidality/Homicidality: Patient denies having any suicidal or homicidal ideation intent or plan. Perceptions: Patient denies any visual hallucinations and denies any auditory hallucinations Though content/process: Notably more linear and logical today with mild paranoia but less fixated than previously Memory and concentration: AOX3, grossly intact for the purposes of this session Judgment and insight: Improving mildly Assessment Psychosis, unspecified Nicotine dependence Plan: -Patient continues to meet criteria for inpatient psychiatric admission for symptom stabilization and safety. Patient has signed adult voluntary form and medication consent and was placed in patient's chart. -Medications: Continue Invega 3 mg twice daily for psychosis and continue trazodone 50 mg at bedtime for sleep -When necessary Ativan and Haldol for agitation/aggression. -Labs: Reviewed -NRT -nicotine patch -SW on board for discharge planning. Encouraged the patient to participate in milieu. Anticipate discharge home tomorrow with uncle
[2024-04-14] MEDS: MAG HYDROX/AL HYDROX/SIMETH 355 ML BOTTLE PO PRN (13:45)
[2024-04-15 06:40] VITALS: BP 119/80; PULSE 96
--- NOTE | 2024-04-15 13:30 | P.DS ---
Providers Date of admission: 04/10/24 22:45 Expected date of discharge: 04/15/24 Attending physician: Yesi Carmona MD Consults: 04/10/24 22:47 Consult Physician Routine Consulting Provider: Gemma Owen Consult Reason/Comments: History and Physical Do you want consulting provider notified?: Yes Primary care physician: Stated None - Discharge Diagnosis(es) (1) Unspecified psychosis Status: Acute Priority: High (2) Nicotine dependence Status: Acute Priority: Medium Hospital Course: Admission HPI: Admission note was completed by Dr. Robertson "Patient presented to the hospital on 04/10 yesterday, complaining of having her device is hacked, endorsing paranoia delusional. Patient was agreeable to sign voluntary admitted to the psychiatric unit. Patient UDS was negative. Patient was agreeable to speak to show card writer today in the office. She appeared to be somewhat upset, states that she believed that her devices are being hacked. Place claims that people are "playing games with me". She was fairly vague at first however specified more and believes that the basketball teams including the [employer] [place] [employer] have been playing tricks on her out in the community. She even referenced a few famous basketball players. She claims that she does not know why she has been targeted, claims that she goes to the shipping helper and they are not helping her taking her seriously. Even claims that she went to a odd ticket clerk who was not able to help her. Claims that she went to her doctor's office and stated that "I do not want to be here" and they ended up transferring her to the ER for evaluation. Patient was fairly focused on different "mind games" that are being played on her. She thinks that other people think that she is "crazy". She was fairly focused on the paranoia during the interview, illogical at times. Claims that her sleep has been on and off, states that she has lots of racing thoughts at nighttime and during the day. Claims that her appetite is fair. Patient denies any suicidal or homicidal ideations intent or plan. At this time patient denies any auditory or visual hallucinations. Patient admits to using cigarettes only, no other recreational drugs" Hospital course: Upon admission to the unit patient was directable and agreeable to commence treatment and signed adult voluntary form.. Patient got along well with other patients on the unit and followed unit protocol. Patient was compliant with the medications and denied any side effects throughout hospital course. Patient was started on invega and this was titrated to 3 mg twice daily and trazodone 50 mg. Patient spoke of her stressors and engaged in therapy both group and individual. Patient was also seen by medical team for history and physical exam. Throughout the course of the hospitalization patient gradually improved with regards to mood, anxiety, sleep and returned back to their baseline level of functioning. On the day of discharge patient denied any suicidal or homicidal ideations intent or plan denied any auditory or visual hallucinations. The patient denied any access to guns or weapons. Patient denied any paranoia and did not endorse any delusions. Patient does not have a significant history of substance abuse and was counseled on abstaining from all substances including alcohol and marijuana. . Patient was also counseled on the medications and need for regular compliance and was encouraged to follow-up with their outpatient appointment for mental health and also for primary care. Prior to discharge a family meeting will be arranged by social welfare administrator to answer any questions and ensure safety upon discharge incuding making sure that guns/weapons are either removed from the home or locked away. Mental status exam: General Appearance: Patient appears to be stated age is alert, pleasant, and cooperative. Patient is in no acute distress and has improved hygiene and grooming Behavior: Patient is calmly seated without any agitated behavior. Speech: Patient's speech is fluent and nonpressured. Mood/Affect: Patient reports their mood is "good", affect is congruent and euthymic. Suicidality/Homicidality: Patient denies having any suicidal or homicidal ideation intent or plan. Perceptions: Patient denies any auditory or visual hallucinations. Though content/process: There is no evidence of any delusional thought content and thought process is linear and goal-directed. Patient was less fixated on devices being hacked Memory and concentration: AOX3, grossly intact for the purposes of this session. Can spell "WORLD" backwards correctly. Judgment and insight: Improved Impression: Unspecified psychosis Nicotine dependence Plan: -Continue with discharge today as patient has improved and stabilized psychiatrically and is not currently an imminent threat to themself and/or oth ers. -Continue medications: Invega 3 mg twice daily for psychosis and trazodone 50 mg at bedtime for sleep -Patient was counseled on the need for medication compliance and appropriate follow-up at mental health and also primary care for medical issues. Patient verbalized understanding and agreed. -Social work to help coordinate patients discharge today arrange for and conduct family meeting to ensure safety upon discharge and answer any questions/concerns. also to ensure safe home environment that guns/weapons are either removed from the home or locked away. Social work also to arrange for pa ethans follow up appointments with [facility] for psychiatric care along with follow up with primary care provider. -Patient counseled on abstaining from recreational drugs and marijuana and alcohol. Was informed/educated on the adverse effects on their physical and mental health. Patient verbally agreed and understood. -Patient was instructed to return to the hospital or seek immediate medical care if their psychiatric or medical symptoms do worsen or reoccur. Abnormal Labs 04/10/24 04/11/24 04/11/24 15:22 07:10 07:10 Hgb 16.3 H Hct 48.8 H Chloride 108 H Delta Bilirubin 0.3 H Urine Appearance Cloudy H Urine Protein 1+ H Urine Blood Trace H Ur Leukocyte Esterase Small H Urine RBC 14 H Urine WBC 8 H Ur Squamous Epith Cells 8 H Urine Bacteria Rare H Hyaline Casts 8 H Urine Mucus Moderate H Vital Signs Temp 97.1 F L 04/14/24 06:56 Pulse 96 04/15/24 06:40 Resp 16 04/14/24 06:56 BP 119/80 04/15/24 06:40 Pulse Ox 96 04/14/24 06:56 FiO2 Allergies Allergy/AdvReac Type Severity Reaction Status Date / Time Penicillins Allergy Swelling Verified 04/10/24 15:48 face Patient Condition at Discharge: Stable Plan - Discharge Summary Discharge Rx Participant: Yes New Discharge Prescriptions: New traZODone HCL [Desyrel] 50 mg PO HS 30 Days #30 tab Nicotine 14Mg/24Hr Patch [Habitrol] 1 patch TRANSDERM DAILY 30 Days #30 patch Paliperidone [Invega] 3 mg PO BID 30 Days #60 tab Discharge Medication List Nicotine 14Mg/24Hr Patch [Habitrol] 1 patch TRANSDERM DAILY 30 Days #30 patch 04/15/24 [Rx] Paliperidone [Invega] 3 mg PO BID 30 Days #60 tab 04/15/24 [Rx] traZODone HCL [Desyrel] 50 mg PO HS 30 Days #30 tab 04/15/24 [Rx] Follow up Appointment(s)/Referral(s): [facility] [Outside] - 04/17/24 1:30 pm (with Amel[facility] Patient Instructions/Handouts: How to Stop Smoking (DC), Psychotic Disorder (DC) Activity/Diet/Wound Care/Special Instructions: [facility] Discharge Info Avoid the use of street drugs and alcohol. Take all medications as prescribed. When you are in need of refills on your medications, please contact your outpatient medical provider and/or outpatient psychiatrist. Please go to your scheduled outpatient appointments for aftercare treatment. If symptoms return or become worse, call the crisis line at or and/or visit the nearest emergency room for assistance. National Suicide and Crisis Lifeline - call or text 128. Discharge Disposition: HOME SELF-CARE
== END 2024-04-15 12:05 | disposition home or self-care (01) | DRG 751 ==
LOC: EC 14:25 → 3MHU 22:45
PROVIDERS: ADMIT Psychiatry & Neurology Psychiatry; ATTEND Psychiatry & Neurology Psychiatry
DX: F29 Unspecified psychosis not due to a substance or known physiological condition (principal); F17.210 Nicotine dependence, cigarettes, uncomplicated; F22 Delusional disorders; F41.9 Anxiety disorder, unspecified; R51.9 Headache, unspecified; Z56.0 Unemployment, unspecified; Z79.899 Other long term (current) drug therapy; Z71.41 Alcohol abuse counseling and surveillance of alcoholic; Z71.51 Drug abuse counseling and surveillance of drug abuser; Z71.89 Other specified counseling; Z88.0 Allergy status to penicillin
CPT/HCPCS: 80053; 80061; 80306; 81001; 81025; 82075; 82248; 83036; 84443; 85025; 87635; 99285